=== PATIENT | female | born 1985 | race Caucasian/White ===

== ENCOUNTER 2016-02-28 09:01 | Emergency (ER) | payer MEDICAID ==
[~2016-02-28] VITALS: Ht 167.6 cm; Wt 98.4 kg
[2016-02-28 09:02] VITALS: BP 157/100; PULSE 90; RESP 18; TEMP 99; O2SAT 100
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
[2016-02-28] MEDS ORDERED: TRAM50TA PO (10:30)
== END 2016-02-28 10:40 | disposition home or self-care (01) ==
LOC: PHED 09:01
DX: S46.902A Unspecified injury of unspecified muscle, fascia and tendon at shoulder and upper arm level, left arm, initial encounter (principal); V86.59XA Driver of other special all-terrain or other off-road motor vehicle injured in nontraffic accident, initial encounter; Y93.89 Activity, other specified; Y92.9 Unspecified place or not applicable
CPT/HCPCS: 73030; 99283

== ENCOUNTER 2016-12-28 08:07 | Emergency (ER) | payer MEDICAID ==
[~2016-12-28] VITALS: Ht 165.1 cm; Wt 104.5 kg
[~2016-12-28 08:07] MED LIST: TRAM50TA PO
[2016-12-28 08:11] VITALS: BP 157/101; PULSE 93; RESP 16; TEMP 97.9; O2SAT 100
[2016-12-28] MEDS ORDERED: IBUPROFEN 600 MG TAB PO ONE (08:45)
[2016-12-28] MEDS ORDERED: IBUP-232 PO (09:02)
--- NOTE | 2016-12-28 09:02 | PD ---
HPI Chief Complaint: Injury Time Seen by Provider: 08:37 Travel History International Travel<30 days: No Contact w/Intl Traveler<30days: No Traveled to known affect area: No History of Present Illness HPI 31 yo f c/o R ankle pain after stepping on uneven ground about 24 hours prior. pain has gradually worsened. it's worse with ambulation and palpation. no interval falls. pain has made walking difficult. no additional comlaints. no otc analgesics employed prior to arrival [facility] Past Medical History Diminished Hearing: No Kidney Stones: Yes Tetanus Vaccination: < 5 Years Influenza Vaccination: No ?: Not LMP: 12/26/16 Past Surgical History Appendectomy: Yes Cholecystectomy: Yes Other Surgery: Yes (left elbow) Social History Alcohol Use: No Tobacco Use: Yes (quit 6 months ago hx of cigs less than 1/2 ppd) Substance Use: No Allergies-Medications (Allergen,Severity, Reaction): Coded Allergies: codeine (Unverified Allergy, Intermediate, RASH, 12/28/16) ketorolac (Unverified Allergy, Unknown, Rash, 12/28/16) Rash per patient Reported Meds & Prescriptions Reported Meds & Active Scripts Active Ibuprofen 600 Mg Tab 600 Mg PO Q8HR PRN 7 Days Review of Systems Except as stated in HPI: all other systems reviewed are Neg General / Constitutional: No: Fever, Chills, Weight Gain, Weight Loss, Other HENT: No: Headaches Cardiovascular: No: Chest Pain or Discomfort Physical Exam Narrative GENERAL: 31 yo F wnwd, no acute distress SKIN: Warm and dry. HEAD: Atraumatic. Normocephalic. MUSCULOSKELETAL: Extremities without clubbing, cyanosis, or edema. No obvious deformities. NO gross deformiy about the right ankle. diffuse TTP throughout nonspecific. NEUROLOGICAL: Awake and alert. No obvious cranial nerve deficits. Motor grossly within normal limits. Five out of 5 muscle strength in the arms and legs. Normal speech. PSYCHIATRIC: Appropriate mood and affect; insight and judgment normal. Data Data Last Documented VS Vital Signs Date Time Temp Pulse Resp B/P (MAP) Pulse Ox O2 Delivery O2 Flow Rate FiO2 12/28/16 08:15 16 100 Room Air 12/28/16 08:11 97.9 93 157/101 (119) Orders Orders Ankle, Complete ([id number]) (12/28/16 ) Foot, Complete ([id number]) (12/28/16 ) Ibuprofen (Motrin) (12/28/16 08:45) ^ Splint (12/28/16 08:40) Ice/Cold Pack (12/28/16 08:40) Ed Discharge Order (12/28/16 09:03) MDM Medical Decision Making Medical Screen Exam Complete: Yes Emergency Medical Condition: Yes Medical Record Reviewed: Yes Differential Diagnosis fracture, dislocation, sprain Narrative Course Last Impressions Foot X-Ray 12/28/16 0000 Signed Impressions: Service Date/Time: December 08:42 - CONCLUSION: Unremarkable examination of the right foot. Sim Bajwa MD Ankle X-Ray 12/28/16 0000 Signed Impressions: Service Date/Time: December 08:42 - CONCLUSION: No acute right ankle abnormality is identified. Sim Mistry MD Pt reassured Non-opioid pharmacologic and non-pharmacologic interventions discussed Diagnosis Primary Impression: Right ankle sprain Qualified Codes: S93.401A - Sprain of unspecified ligament of right ankle, initial encounter Referrals: Nolberto Pinedo DPM call for appointment Additional Instructions: You have a choice when it comes to health care, and we are glad that you chose [facility]. Hopefully, we have met your expectations on today's visit. You are welcome to return to [facility] at any time, as we are committed to meeting the health care needs of our community. Med/Other Pt SpecificInfo: Prescription(s) given Scripts Ibuprofen (Ibuprofen) 600 Mg Tab 600 MG PO Q8HR Y for PAIN SCALE 6 TO 10 for 7 Days, TAB 0 Refills Prov: Agustín Cobb MD 12/28/16 Disposition: 01 DISCHARGE HOME Condition: Stable Agustín Cobb MD Dec 28, 2016 09:02
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
== END 2016-12-28 09:20 | disposition home or self-care (01) ==
LOC: PHED 08:07
DX: S93.401A Sprain of unspecified ligament of right ankle, initial encounter (principal); Y93.01 Activity, walking, marching and hiking
CPT/HCPCS: 73610; 73630; 99283